=== PATIENT | female | born 1975 | race American Indian/Alaskan Native ===

== ENCOUNTER 2017-03-22 21:39 | Emergency (ER) | payer MEDICARE ==
[2017-03-23] MEDS ORDERED: KEPPRA 1,000 MG/NS 0.75% 100ML 1,000 MG/100 ML BAG IV ONE (00:25)
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
[2017-03-23 01:23] LABS: Creatine Kinase MB 2.7 ng/mL (0.0-4.0)
[2017-03-23 01:25] LABS: Alanine Aminotransferase 10 units/L (7-56); Albumin 3.7 g/dL (3.9-5); Albumin/Globulin Ratio 1.3 %; Alkaline Phosphatase 72 units/L (35-129); Anion Gap 16 mmol/L; BUN/Creatinine Ratio 18; Blood Urea Nitrogen 11 mg/dL (7-17); Calcium 9.2 mg/dL (8.4-10.2); Carbon Dioxide 23 mmol/L (22-30); Creatine Kinase 59 units/L (30-135); Glucose 104 mg/dL (65-100); Potassium 3.4 mmol/L (3.6-5.0); Sodium 138 mmol/L (137-145); Total Protein 6.6 g/dL (6.3-8.2)
[2017-03-23 01:38] LABS: Basophils % (Auto) 0.6 % (0.0-1.8); Eosinophils % (Auto) 1.3 % (0.0-4.3); Hematocrit 33.9 % (30.3-42.9); Hemoglobin 11.5 gm/dl (10.1-14.3); Mean Corpuscular HGB Conc 34 % (30-34); Mean Corpuscular Hemoglobin 29 pg (28-32); Mean Corpuscular Volume 86 fl (79-97); Platelet Count 389 K/mm3 (140-440); Red Blood Count 3.92 M/mm3 (3.65-5.03); Red Cell Distribution Width 17.2 % (13.2-15.2); White Blood Count 6.9 K/mm3 (4.5-11.0)
[2017-03-23 02:13] LABS: Urine Drugs of Abuse Note Disclamer
[2017-03-23] MEDS ORDERED: K-DUR PO ONE (02:41)
[2017-03-23] MEDS ORDERED: NACL ONE (03:14)
--- NOTE | 2017-03-23 04:03 | XRay Report ---
FINAL REPORT EXAM: XR CHEST 1V AP HISTORY: nuclear med COMPARISON: None available. FINDINGS: Frontal view(s) of the chest obtained. Cardiac silhouette within normal limits. No gross consolidation or effusion. No pneumothorax. IMPRESSION: No grossly acute findings.
--- NOTE | 2017-03-23 05:00 | Nuclear Medicine Report ---
FINAL REPORT PROCEDURE: NM LUNG SCAN PERF/VENT TECHNIQUE: 5.0 mCi Tc-99m MAA was injected IV for pulmonary perfusion imaging in multiple projections. 15 MCi [id number] was inhaled for pulmonary ventilation imaging in multiple projections. Injection site: RIGHT antecubital fossa. CPT 68226 REGULATORY GUIDELINES: The patient was released based upon guidelines established in [place] State Regulations for Protection Against Radiation, Chapter 5427-26-28-35, Release of Individuals Containing Radioactive Drugs or Implants. HISTORY: PASSED OUT,AMS COMPARISON: No prior studies are available for comparison. FINDINGS: Perfusion: No defects . Ventilation: No defects . IMPRESSION: Normal Examination
[2017-03-23] MEDS ORDERED: NACL 0.9% 1000 ML 1,000 ML IV ONE (05:26)
--- NOTE | 2017-03-23 07:33 | Cat Scan Report ---
FINAL REPORT EXAM: CT HEAD/BRAIN WO CON HISTORY: AMS TECHNIQUE: CT imaging acquired through the head without intravenous contrast. Transaxial reformations are provided. PRIORS: None. FINDINGS: The ventricles, cisterns and sulci are normal. No intraparenchymal or extra-axial mass, hemorrhage, or mass effect. [place] and white-matter differentiation is normal. Normal spherical shape of the globes. No acute abnormality within the imaged portions of the mastoid air cells or paranasal sinuses. The right ethmoid sinus may be chronically/developmentally dysmorphic and is partially imaged. No skull or acute facial fracture visualized. IMPRESSION: No acute intracranial abnormality.
[2017-03-23 09:50] VITALS: BP 111/66
== END 2017-03-23 10:00 | disposition home or self-care (01) ==
LOC: ED 21:39
DX: E87.6 Hypokalemia (principal); R56.9 Unspecified convulsions; I95.9 Hypotension, unspecified
CPT/HCPCS: 36415; 70450; 71010; 78582; 80053; 80307; 82550; 82553; 84484; 85025; 85379; 93005; 93010; 96361; 96374; 99285; A9540; A9558; G0480; J1953; 80320